=== PATIENT | female | born 1985 ===

== ENCOUNTER 2017-11-27 10:12 | Emergency (ER) | payer OTHER ==
[~2017-11-27] VITALS: Ht 160 cm; Wt 83.5 kg
[2017-11-27] MEDS ORDERED: PRENATABS RX T1 EACH (10:17)
== END 2017-11-27 13:06 | disposition home or self-care (01) ==
LOC: ER 10:12
DX: O26.892 Other specified pregnancy related conditions, second trimester (principal); R10.2 Pelvic and perineal pain; R10.13 Epigastric pain; Z34.82 Encounter for supervision of other normal pregnancy, second trimester

== ENCOUNTER 2018-03-23 22:21 | Outpatient (CLI) | payer OTHER ==
[~2018-03-23 22:21] MED LIST: PRENATABS RX T1 EACH
[2018-03-24] MEDS ORDERED: KEFLEX500 MG PO (19:07)
== END 2018-03-24 20:10 | disposition home or self-care (01) ==
LOC: OBS/DEL 22:21
DX: O26.893 Other specified pregnancy related conditions, third trimester (principal); R10.2 Pelvic and perineal pain; Z34.83 Encounter for supervision of other normal pregnancy, third trimester

== ENCOUNTER 2018-04-27 05:18 | Inpatient (IN) | payer OTHER ==
[~2018-04-27] VITALS: Ht 160 cm; Wt 93.4 kg
[~2018-04-27 05:18] MED LIST changes: +KEFLEX500 MG PO
[2018-04-27] MEDS ORDERED: ZANTAC150 M3 PO (05:51)
== END 2018-04-30 18:29 | disposition home or self-care, planned readmission (81) | DRG 788 ==
LOC: OB/GYN 05:18 → O/R 05:18 → LDR 05:18 → O/R 08:28 → OB/GYN 10:14
PROVIDERS: Specialist
PROC: 4A1HXCZ Monitoring of Products of Conception, Cardiac Rate, External Approach (ICD-10-PCS; 2018-04-27)
PROC: 10D00Z1 Extraction of Products of Conception, Low, Open Approach (ICD-10-PCS; principal; 2018-04-27 09:00)
DX: O67.8 Other intrapartum hemorrhage (principal); Z3A.36 36 weeks gestation of pregnancy; Z37.0 Single live birth